=== PATIENT | female | born 2005 | race Caucasian/White ===

== ENCOUNTER 2024-11-06 16:37 | Emergency (ER) | payer SELFPAY ==
[2024-11-06 16:54] VITALS: BP 123/81; PULSE 105; RESP 16; TEMP 36.7; O2SAT 97; BMI 40.3
--- NOTE | 2024-11-06 17:25 | ED_ITS ---
HPI - URI/Sore Throat General: Chief Complaint: Upper Respiratory Infection Stated Complaint: left side face pain Time Seen by Provider: 11/06/24 17:13 Source: patient Mode of arrival: ambulatory Limitations: no limitations History of Present Illness: Patient is a 19-year-old female who presents the emergency department complaining of headache and facial pain for the past couple days. She states that she recently had the flu and has since gotten over this prior to symptom onset couple days ago. States that this feels like prior sinus infections that she has had, she is also noting pain radiating towards her dentition up towards her left ear. Notes some congestion as well. No fever, cough, shortness of breath, or other systemic signs of illness. She has not taken any medications for her symptoms. Vitals unremarkable at this time. MD elicited complaint: nasal congestion and sinus pain Pertinent past history: sinusitis Onset (ago): day(s) Consistency: constant Severity: moderate Description of mucous: clear Able to tolerate fluids by mouth: Yes Exacerbating factors: nothing Relieving factors: nothing Associated symptoms: Reports ear or mastoid pain, headache(s), nasal congestion and sinus pain; Deny abdominal pain, chills, chest pain, diarrhea, fever(s), nausea or vomiting Treatments prior to arrival: none Related Data Previous Rx's ?Medication ?Instructions ?Recorded amoxicillin 875 mg-potassium 1 tab PO BID 10 days #20 tabs 11/06/24 clavulanate 125 mg tablet Allergies Allergy/AdvReac Type Severity Reaction Status Date / Time hyoscyamine (From Levsin) Allergy ALGY-Anaphy Verified 11/06/24 17:00 laxis Review of Systems General: Reports: 10 or more systems reviewed and unremarkable except in HPI and below Const: Denies: fever(s), chills, body aches, change in appetite or fatigue ENMT: Reports: ear or mastoid pain, nasal congestion and sinus pain; Denies: throat pain, ear discharge or nasal discharge Card: Denies: chest pain, palpitations or lightheadedness Resp: Denies: dyspnea, productive cough or wheezing GI: Denies: abdominal pain, nausea, vomiting or diarrhea Musc: Denies: neck pain Skin/Breast: Denies: rash Neuro: Reports: headache(s) Physical Exam Const: COMMON NORMALS: no acute distress, patient oriented x3, no limitations and alert GENERAL APPEARANCE: cooperative and comfortable HENMT: COMMON NORMALS: normocephalic, atraumatic, hearing grossly normal bilaterally, external ears normal, EAC's normal, TM's normal bilaterally, Normal external nose present, Normal nasal mucous membranes and turbinates present, moist oral mucous membranes, oropharynx normal, dentition normal and gingiva normal HEAD & SCALP: normocephalic and atraumatic NOSE: Normal external nose present and Normal nasal mucous membranes and turbinates present EXTERNAL EAR: Yes external ears normal EXTERNAL AUDITORY CANAL: EAC's normal TYMPANIC MEMBRANE: TM's normal bilaterally OTHER: Tenderness to palpation of left maxillofacial region Eye: COMMON NORMALS: EOMs intact bilaterally and conjunctivae normal CO NJUNCTIVA: Yes conjunctivae normal Neck/C-Spine: COMMON NORMALS: full ROM, no lymphadenopathy and no meningeal signs Resp: COMMON NORMALS: normal respiratory effort, No retractions, No use of accessory muscles and clear to auscultation bilaterally AUSCULTATION: clear to auscultation bilaterally Cardio: COMMON NORMALS: regular rate, regular rhythm, S1 normal heart sound present and S2 normal heart sound present RATE: regular rate RHYTHM: regular rhythm HEART SOUNDS: S1 normal heart sound present and S2 normal hear t sound present Extremity: COMMON NORMALS: normal to inspection and full ROM Neuro: COMMON NORMALS: patient oriented x3, moves all extremities, no focal motor deficits and no sensory deficits noted SENSORIUM/ORIENTATION: Yes alert MENINGEAL SIGNS: Yes no meningeal signs Skin: COMMON NORMALS: no rashes or lesions noted GENERAL SKIN EXAM: no rashes or lesions noted Course Vital Signs: Vital signs: Vital Signs Temperature 98.0 F 11/06/24 16:54 Pulse Rate 105 H 11/06/24 16:54 Respiratory Rate 16 11/06/24 16:54 Blood Pressure 123/81 11/06/24 16:54 Pulse Oximetry 97 11/06/24 16:54 Oxygen Delivery Me thod Room Air 11/06/24 16:54 MDM - URI/Sore Throat Medical Decision Making Patient presenting stating she has what feels like prior sinus infections. Recently had the flu, she has no real upper respiratory symptoms other than nasal congestion along with her headache and facial pain. Dentition seemed okay, regardless we will treat with Augmentin for a sinus infection and given shot of Decadron here. Vitals have been stable she will be given general return precautions. No radiology studies performed this visit Discharge Plan Discharge Patient Disposition: Home Clinical Impression: Acute infection of sinus Condition: Stable Prescriptions: New amoxicillin-pot clavulanate 875-125 mg tablet 1 tab PO BID 10 Days Qty: 20 0RF Discharge Orders: Discharge ED (Routine); Ordered 11/06/24 Ordered By: Simon Hampton Patient Instructions: Sinusitis (ED) Activity Restrictions/Additional Instructions: See attached patient instructions for further education. Antibiotics as prescribed. Tylenol or ibuprofen for headaches or fevers. Return with any difficulty breathing or other concerns you have. Follow-up routinely with primary care. Print Language: Greek Coding Level of Care Code ED Barber Stylist for Arelis Alejo
[2024-11-06] MEDS: dexamethasone 10 mg/mL INJ IM (17:44)
[2024-11-06 18:11] VITALS: BP 113/73; PULSE 105; O2SAT 95
== END 2024-11-06 18:12 | disposition home or self-care (01) ==
PROVIDERS: Emergency Provider Physician Assistant
DX: J01.90 Acute sinusitis, unspecified (principal)
CPT/HCPCS: 96372; 99284; J1100

== ENCOUNTER 2024-11-29 19:44 | Emergency (ER) | payer SELFPAY ==
[2024-11-29 19:46] VITALS: BP 130/87; PULSE 105; RESP 16; TEMP 36.9; O2SAT 98; BMI 40.3
[2024-11-29 21:14] LABS: Rapid Strep A Test Negative (Negative)
[2024-11-29 21:21] LABS: Monoscreen Negative (Negative)
[2024-11-29 21:58] VITALS: BP 152/109; PULSE 92; RESP 18; O2SAT 94
--- NOTE | 2024-11-30 03:09 | W.ED.GENADLT ---
HPI - General Adult General: Chief complaint: Upper Respiratory Infection Stated complaint: Tonsules,Limpnods swollen, Dry Cough Time Seen by Provider: 11/29/24 20:02 History of Present Illness: This patient is a 19-year-old white female who presents to the emergency department complaining of a sore throat and some swollen lymph nodes in her neck. She states she has had the symptoms for 3 weeks. No fever. She states she was on a course of antibiotics couple of weeks ago. Related Data Previous Rx's ?Medication ?Instructions ?Recorded clindamycin HCl 300 mg capsule 300 mg PO TID 10 days #30 caps 11/29/24 (Cleocin HCl) Allergies Allergy/AdvReac Type Severity Reaction Status Date / Time hyoscyamine (From Levsin) Allergy ALGY-Anaphy Verified 11/06/24 17:00 laxis Review of Systems General: Reports: 10 or more systems reviewed and unremarkable except in HPI and below ENMT: Reports: throat pain Physical Exam Const: COMMON NORMALS: no acute distress, patient oriented x3 and no limitations GENERAL APPEARANCE: cooperative and comfortable HENMT: COMMON NORMALS: normocephalic, atraumatic, Normal nasal mucous membranes and turbinates present and moist oral mucous membranes HEAD & SCALP: normal to inspection, normocephalic and atraumatic FACE & SINUS: normal facial exam NOSE: Normal nasal mucous membranes and turbinates present OTHER: Diffuse erythema of the posterior pharynx. Eye: COMMON NORMALS: Equal, round and reactive pupils present, EOMs intact bilaterally and conjunctivae normal GENERAL EYE: appearance normal, both eyes and all related structures CONJUNCTIVA: Yes conjunctivae normal PUPIL: Yes Equal, round and reactive pupils present Neck/C-Spine: COMMON NORMALS: supple and no JVD Lymph: OTHER: Cervical lymphadenopathy. Chest: COMMONS NORMALS: normal inspection of the chest Resp: COMMON NORMALS: normal respiratory effort and clear to auscultation bilaterally AUSCULTATION: clear to auscultation bilaterally Cardio: COMMON NORMALS: no JVD, regular rate, regular rhythm, No gallops present (Cardio), No murmurs present (Cardio) and No rub (Cardio) RATE: regular rate RHYTHM: regular rhythm GI: COMMON NORMALS: Normal to inspection, nondistended, normoactive bowel sounds present, Soft to palpation and non-tender AUSCULTATION: Yes normoactive bowel sounds PALPATION: Yes Soft to palpation : COMMON NORMALS: Yes no CVA tenderness BLADDER/KIDNEY EXAM: Yes no CVA tenderness Back/Pelvis: COMMON NORMALS: no CVA tenderness and thoracic and lumbar spine normal to inspection Extremity: COMMON NORMALS: normal to inspection Neuro: COMMON NORMALS: patient oriented x3 and CN's II-XII intact bilaterally Psych: COMMON NORMALS: mental status grossly normal, Normal thought process present and cooperative THOUGHT PROCESS: Normal thought process present Skin: COMMON NORMALS: no rashes or lesions noted, turgor normal and no jaundice GENERAL SKIN EXAM: no rashes or lesions noted and turgor normal Course Vital Signs: Vital signs: Vital Signs Temperature 98.5 F 11/29/24 19:46 Pulse Rate 92 11/29/24 21:58 Respiratory Rate 18 11/29/24 21:58 Blood Pressure 152/109 11/29/24 21:58 Pulse Oximetry 94 11/29/24 21:58 Oxygen Delivery Me thod Room Air 11/29/24 19:46 MDM - General Adult Medical Decision Making [place] and strep test were negative. I did place the patient on clindamycin. Recommended she follow-up with her primary care provider after completing the antibiotics for recheck. She was discharged in stable condition. Lab Data Laboratory Results Monoscreen Negative (Negative) 11/29/24 21:13 Group A Strep Rapid Negative (Negative) 11/29/24 21:02 No radiology studies performed this visit Discharge Plan Discharge Patient Disposition: Home Clinical Impression: Pharyngitis Qualifiers: Pharyngitis/tonsillitis etiology: unspecified etiology Qualified Code(s): J02.9 - Acute pharyngitis, unspecified Condition: Stable Prescriptions: New clindamycin HCl [Cleocin HCl] 300 mg capsule 300 mg PO TID 10 Days Qty: 30 0RF Discharge Orders: Discharge ED (Routine); Ordered 11/29/24 Ordered By: Maximo Alas Patient Instructions: Pharyngitis (ED) Print Language: Citizen Of [place] Coding Level of Care Code ED Lithographic Etcher for Arelis Alejo
== END 2024-11-29 21:59 | disposition home or self-care (01) ==
PROVIDERS: Emergency Provider Emergency Medicine
DX: J02.9 Acute pharyngitis, unspecified (principal)
CPT/HCPCS: 36415; 86308; 87081; 87880; 99283

== ENCOUNTER 2024-12-01 15:50 | Emergency (ER) | payer SELFPAY ==
[2024-12-01 15:54] VITALS: BP 114/64; PULSE 95; RESP 18; TEMP 36.8; O2SAT 96; BMI 40.3
--- NOTE | 2024-12-01 16:15 | XRR_ITS ---
PROCEDURE INFORMATION: Exam: XR Right Finger(s) Exam date and time: 12/01/2024 4:19 PM Age: 19 years old Clinical indication: Pain; Finger(s); Right; Injury not specified; Additional info: Ring finger injury TECHNIQUE: Imaging protocol: Radiologic exam of the right fingers. Views: Minimum 2 views. COMPARISON: No relevant prior studies available. FINDINGS: Bones/joints: Normal. Soft tissues: Normal. XR/XR finger RT min 2V [id number] IMPRESSION: No acute findings.
--- NOTE | 2024-12-01 16:16 | ED_ITS ---
HPI - Extremity Injury (Upper) General: Chief Complaint: Extremity Injury, Upper Stated Complaint: right hand ring finger injury Time Seen by Provider: 12/01/24 16:07 Source: patient Mode of arrival: ambulatory Limitations: no limitations History of Present Illness: Patient is a 19-year-old female presents to ED today for evaluation of a right ring finger injury that she sustained earlier today when she was breaking up a dog fight and feels like the finger bent wrong . She denies any bite injuries to the finger or hand. She has noticed ecchymosis to the distal tip of the right ring finger. No nail injury. complaint: injury to: right and finger Onset (ago): hour(s) Other Extremity Injury: Right: fingers Other injuries: none Place: home Severity: mild Relieving factors: immobilization Exacerbating factors: movement of extremity Context: direct blow Associated symptoms: Reports no associated symptoms Related Data Previous Rx's ?Medication ?Instructions ?Recorded clindamycin HCl 300 mg capsule 300 mg PO TID 10 days # 30 caps 11/29/24 (Cleocin HCl) Allergies Allergy/AdvReac Type Severity Reaction Status Date / Time hyoscyamine (From Levsin) Allergy ALGY-Anaphy Verified 11/06/24 17:00 laxis Review of Systems Musc: Reports: extremity pain (R ring finger) and extremity swelling Skin/Breast: Reports: other (ecchymosis R ring finger) Neuro: Denies: numbness in extremities or sensory changes Physical Exam Extremity: GENERAL: Yes normal exam except as noted RIGHT UPPER EXTREMITY: Yes hand & digits (TTP, edema, ecchymosis to palmar pad R ring finger) Right hand and digits: Yes neurovascular exam (normal) Neuro: COMMON NORMALS: moves all extremities, no focal motor deficits and no sensory deficits noted Course Vital Signs: Vital signs: Vital Signs Temperature 98.2 F 12/01/24 15:54 Pulse Rate 95 12/01/24 15:54 Respiratory Rate 18 12/01/24 15:54 Blood Pressure 114/64 12/01/24 15:54 Pulse Oximetry 96 12/01/24 15:54 Oxygen Delivery Me thod Room Air 12/01/24 15:54 MDM - Extremity Injury (Upper) Medical Decision Making XR unremarkable. She will be allowed discharge with return precautions. XR interpretation done by ED provider, pending radiology final review Discharge Plan Discharge Patient Disposition: Home Clinical Impression: Contusion of finger of right hand Condition: Stable Prescriptions: No Action clindamycin HCl [Cleocin HCl] 300 mg capsule 300 mg PO TID 10 Days Qty: 30 0RF Discharge Orders: Discharge ED (Routine); Ordered 12/01/24 Ordered By: Eli Diggs Print Language: Samoan Coding Level of Care Code ED Baggage Inspector for Arelis Alejo
[2024-12-01 16:45] VITALS: PULSE 96; O2SAT 99
== END 2024-12-01 16:45 | disposition home or self-care (01) ==
PROVIDERS: Emergency Provider Physician Assistant
DX: S60.041A Contusion of right ring finger without damage to nail, initial encounter (principal); W54.8XXA Other contact with dog, initial encounter
CPT/HCPCS: 73140; 99283